=== PATIENT | female | born 1995 | race Asian ===

== ENCOUNTER 2022-05-03 01:35 | Emergency (ER) | payer OTHER ==
[~2022-05-03] VITALS: Ht 154.9 cm; Wt 47.0 kg
[2022-05-03 02:03] VITALS: BP 122/81
[2022-05-03] MEDS ORDERED: POVIDONE-IODINE 10% 15 ML SOLUTION UD TP ONE (02:15)
[2022-05-03] MEDS ORDERED: GELATIN SPONGE,ABSORBABLE 50 MM TP ONE (02:30)
[2022-05-03] MEDS ORDERED: PERTUSS(ACELL),DIPH,TET VAC/PF 0.5 ML SYRINGE IM. ONE (02:30)
[2022-05-03] MEDS ORDERED: LIDOCAINE 1% 10 ML VIAL SQ ONE (02:30)
[2022-05-03] MEDS ORDERED: CEPHALEXIN MONOHYDRATE 500 MG CAPSULE PO ONE (03:15)
== END 2022-05-03 04:14 ==
LOC: EMS 01:37
DX: S61.412A Laceration without foreign body of left hand, initial encounter (principal); W45.8XXA Other foreign body or object entering through skin, initial encounter; Y93.89 Activity, other specified; Y92.89 Other specified places as the place of occurrence of the external cause; Y99.8 Other external cause status
CPT/HCPCS: 12041; 90715; 99284; J3490